=== PATIENT | male | born 1965 | race Caucasian/White ===

== ENCOUNTER 2019-07-30 20:36 | Emergency (ER) | payer OTHER ==
[2019-07-30 20:51] VITALS: BP 117/78; PULSE 82; TEMP 98.2; BMI 32.5
[2019-07-30] MEDS ORDERED: IBUPROFEN 400 MG TABLET (FP) PO ONE ×2 (21:00→21:05)
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
== END 2019-07-30 21:08 | disposition home or self-care (01) ==
LOC: FER 20:36
PROC: 0H9JXZZ Drainage of Left Upper Leg Skin, External Approach (ICD-10-PCS; principal; 2019-07-30)
DX: L72.3 Sebaceous cyst (principal); F17.210 Nicotine dependence, cigarettes, uncomplicated; Z95.810 Presence of automatic (implantable) cardiac defibrillator; K21.9 Gastro-esophageal reflux disease without esophagitis; I10 Essential (primary) hypertension; E78.5 Hyperlipidemia, unspecified
CPT/HCPCS: 87070; 87186; 87205; 99281-25

== ENCOUNTER 2021-11-20 10:20 | Emergency (ER) | payer OTHER ==
[2021-11-20 10:27] VITALS: BP 101/66; PULSE 86; TEMP 98.1; BMI 36.9
[2021-11-20] MEDS ORDERED: DIPHTH,PERTUSS(ACELL),TET 0.5 ML DISP.SYRIN IM ONE ×2 (10:41→10:42)
[2021-11-20] MEDS ORDERED: CEPHALEXIN MONOHYDRATE 500 MG CAPSULE (UD) PO ONE (11:19)
[2021-11-20] MEDS ORDERED: CEPHALEXIN MONOHYDRATE 500 MG CAPSULE (UD) ONE (11:24)
== END 2021-11-20 11:40 | disposition home or self-care (01) ==
LOC: FER 10:20
DX: L03.116 Cellulitis of left lower limb (principal)
CPT/HCPCS: 90715; 93971-TC; 99283-25

== ENCOUNTER 2022-03-01 08:32 | Day surgery (SDC) | payer OTHER ==
[2022-03-01 08:43] VITALS: BMI 36.4
[2022-03-01] MEDS ORDERED: VANCOMYCIN 1 GM PREMIX - 200 ML IVPB ONE (09:16)
[2022-03-01] MEDS ORDERED: VANCOMYCIN 1,000 MG in DEXTROSE 5%-WATER - 250 ML IVPB ONE (09:57)
[2022-03-01] MEDS ORDERED: VANCOMYCIN 1,000 MG VIAL (RESTRICTED TO ID ONLY) ONE (09:59)
[2022-03-01 10:00] LABS: HEMATOCRIT 41.5 % (35.4-49); HEMOGLOBIN 14.1 G/dL (11.7-16.9); MCH 31.8 pg (25.7-33.7); MEAN CELL VOLUME 93.4 fl (80-96); MEAN PLT VOLUME 8.3 fl (7.5-11.1); PLATELET COUNT 214.1 10^3/uL (134-434); RBC 4.44 10^6/uL (4.00-5.60); RDW 13.8 % (11.9-15.9); WHITE BLOOD COUNT 9.7 10^3/uL (4.0-10.8)
[2022-03-01 10:04] LABS: ALBUMIN 3.7 g/dl (3.4-5.0); BILIRUBIN,TOTAL 0.8 mg/dl (0.2-1); CALCIUM 8.9 mg/dl (8.5-10); CREATININE 1.5 mg/dl (0.55-1.3); INR 1.12 (0.83-1.09); PROTHROMBIN TIME (PATIENT) 12.9 SEC (9.7-13.0); TOT PROT 6.2 g/dl (6.4-8.2)
[2022-03-01] MEDS ORDERED: SODIUM CHLORIDE 1,000 ML IV ONE (11:23)
[2022-03-01] MEDS ORDERED: GENTAMICIN SO4 80 MG/2 ML VIAL ONE (12:30)
[2022-03-01] MEDS ORDERED: DEXAMETHASONE SOD PHOSPHATE 4 MG/1 ML VIAL ONE (12:35)
[2022-03-01] MEDS ORDERED: ONDANSETRON 4 MG/2 ML VIAL ONE (12:35)
[2022-03-01] MEDS ORDERED: PROPOFOL 40 ML ONE (12:35)
[2022-03-01] MEDS ORDERED: LIDOCAINE HCL/PF 2% SDV 5ML VIAL ONE (12:35)
[2022-03-01] MEDS ORDERED: ceFAZolin SODIUM 1 GM VIAL ONE (12:35)
[2022-03-01] MEDS ORDERED: MIDAZOLAM HCL 2 MG/2 ML SINGLE DOSE VIAL ONE (12:35)
[2022-03-01] MEDS ORDERED: SUCCINYLCHOLINE CHLORIDE 200 MG/10 ML SYRINGE ONE (12:38)
[2022-03-01] MEDS ORDERED: ONDANSETRON 4 MG/2 ML VIAL IVPUSH PRN ×2 (12:46→14:47)
[2022-03-01] MEDS ORDERED: oxyCODONE HCL 5 MG TABLET PO PRN ×2 (12:46→14:47)
[2022-03-01] MEDS ORDERED: DESFLURANE GAS 240 ML BOTTLE IH ONE (13:00)
[2022-03-01] MEDS ORDERED: LACTATED RINGERS SOLUTION 1,000 ML IV SCH (13:00)
[2022-03-01] MEDS ORDERED: ETOMIDATE 20 MG/10 ML AMPUL IVPUSH ONE (13:07)
[2022-03-01] MEDS ORDERED: BUPIVACAINE HCL 100 ML ONE (13:09)
[2022-03-01] MEDS ORDERED: FENTANYL CITRATE/PF 50 MCG/ML VIAL ONE (15:00)
[2022-03-01] MEDS: oxyCODONE HCL 5 MG TABLET PO PRN (21:14)
[2022-03-01] MEDS: TICAGRELOR 60 MG TABLET PO SCH (21:17)
[2022-03-01] MEDS ORDERED: CARVEDILOL 12.5 MG TABLET (FP) PO SCH (22:00)
[2022-03-01] MEDS ORDERED: CARVEDILOL 6.25 MG TABLET (FP) PO SCH (22:00)
[2022-03-01] MEDS ORDERED: SACUBITRIL/VALSARTAN 97 MG-103 MG TABLET PO SCH (22:00)
[2022-03-01] MEDS ORDERED: TAMSULOSIN HCL 0.4 MG CAP PO SCH (22:00)
[2022-03-01] MEDS: CEFAZOLIN SODIUM 2 GM in DEXTROSE 5%-WATER 100 ML IVPB SCH (22:17)
[2022-03-01] MEDS ORDERED: ceFAZolin 2 GRAM PREMIX BAG IVPB SCH (23:00)
[2022-03-02] MEDS: CEFAZOLIN SODIUM 2 GM in DEXTROSE 5%-WATER 100 ML IVPB SCH (06:41)
[2022-03-02] MEDS: oxyCODONE HCL 5 MG TABLET PO PRN (06:49)
[2022-03-02] MEDS: TICAGRELOR 60 MG TABLET PO SCH (09:51)
[2022-03-02] MEDS ORDERED: ACETAMINOPHEN 1000 MG/100 ML BAG IVPB PRN (09:52)
[2022-03-02] MEDS ORDERED: ESCITALOPRAM OXALATE 20 MG TABLET PO SCH (10:00)
[2022-03-02] MEDS ORDERED: NICOTINE 14 MG/24 HOURS TOPICAL PATCH TD SCH (10:00)
[2022-03-02] MEDS ORDERED: ASPIRIN 325 MG ENTERIC COATED TABLET (FP) PO SCH ×2 (10:00)
[2022-03-02] MEDS ORDERED: ASPIRIN 81 MG CHEWABLE TABLETS PO SCH (10:00)
[2022-03-02 11:20] LABS: HEMATOCRIT 40.4 % (35.4-49); HEMOGLOBIN 14.1 G/dL (11.7-16.9); MCH 32.7 pg (25.7-33.7); MEAN CELL VOLUME 93.5 fl (80-96); MEAN PLT VOLUME 8.3 fl (7.5-11.1); PLATELET COUNT 194.8 10^3/uL (134-434); RBC 4.32 10^6/uL (4.00-5.60); RDW 13.9 % (11.9-15.9); WHITE BLOOD COUNT 18.2 10^3/uL (4.0-10.8)
[2022-03-02 11:33] LABS: ALBUMIN 3.5 g/dl (3.4-5.0); BILIRUBIN,TOTAL 0.5 mg/dl (0.2-1); CALCIUM 8.7 mg/dl (8.5-10); CREATININE 1.4 mg/dl (0.55-1.3); TOT PROT 6.1 g/dl (6.4-8.2)
[2022-03-02 11:38] LABS: CHOLESTEROL 160 mg/dl (50-200); HDL CHOLESTEROL 42 mg/dl (40-60); LDL CHOLESTEROL (ONLY DFH) 104 mg/dl (5-100); TRIGLYCERIDES 68 mg/dl (0-150)
[2022-03-02 11:55] LABS: PLATELET ESTIMATE ADEQUATE
[2022-03-02 14:20] VITALS: BP 100/55; PULSE 88; RESP 17; TEMP 98.2
[2022-03-02] MEDS ORDERED: ATORVASTATIN CA 80 MG TABLET (FP) PO SCH (22:00)
== END 2022-03-02 15:28 | disposition home or self-care (01) ==
LOC: FASUSAT 08:32 → EDSTATUS 13:00 → FM/S 14:30 → UNDOADMOB 14:30 → INTOOBSV 14:58 → OBSVTOIN 14:58 → FM/S 16:43 → FASUSAT 16:43
PROVIDERS: ATTEND Student in an Organized Health Care Education/Training Program
PROC: 0LBR0ZZ Excision of Left Knee Tendon, Open Approach (ICD-10-PCS; 2022-03-01)
PROC: 0LQM0ZZ Repair Left Upper Leg Tendon, Open Approach (ICD-10-PCS; principal; 2022-03-01 13:36)
DX: T81.30XA Disruption of wound, unspecified, initial encounter (principal); S76.122A Laceration of left quadriceps muscle, fascia and tendon, initial encounter; X58.XXXA Exposure to other specified factors, initial encounter; Y93.9 Activity, unspecified; Y92.9 Unspecified place or not applicable; Y99.9 Unspecified external cause status
CPT/HCPCS: 36415; 80053; 80061; 83036; 84443; 85027; 85610; 86850; 86900; 86901; 87040; 87070; 87205; 93005; 93010; 94760; 97116-GP; 97161-GP; C9803-CS; U0003; U0005

== ENCOUNTER 2023-05-25 18:35 | Emergency (ER) | payer OTHER ==
[2023-05-25 18:53] VITALS: BP 114/73; PULSE 103; RESP 16; TEMP 98.3; BMI 39.4
[2023-05-25] MEDS ORDERED: LIDO 2%/EPI 1:200000 PRESRVFRE (20 ML SDVIAL) ONE (19:19)
== END 2023-05-25 20:10 | disposition home or self-care (01) ==
LOC: FER 18:35
PROC: 0HQFXZZ Repair Right Hand Skin, External Approach (ICD-10-PCS; principal; 2023-05-25)
DX: S61.210A Laceration without foreign body of right index finger without damage to nail, initial encounter (principal); W27.4XXA Contact with kitchen utensil, initial encounter; Y92.009 Unspecified place in unspecified non-institutional (private) residence as the place of occurrence of the external cause
CPT/HCPCS: 99282-25

== ENCOUNTER 2023-09-26 11:14 | Day surgery (SDC) | payer OTHER ==
[2023-09-23 14:51] VITALS: BMI 37.6
[2023-09-26] MEDS ORDERED: PROPOFOL 40 ML ONE (11:38)
[2023-09-26] MEDS ORDERED: LIDOCAINE HCL/PF 2% SDV 5ML VIAL ONE (11:38)
[2023-09-26] MEDS ORDERED: MIDAZOLAM HCL 2 MG/2 ML SINGLE DOSE VIAL ONE (11:59)
[2023-09-26] MEDS ORDERED: ONDANSETRON 4 MG/2 ML VIAL ONE (11:59)
[2023-09-26] MEDS ORDERED: DEXAMETHASONE SOD PHOSPHATE 4 MG/1 ML VIAL ONE (11:59)
[2023-09-26] MEDS ORDERED: BUPIVACAINE HCL/PF 0.5% (5MG/ML) 10 ML VIAL ONE (12:20)
[2023-09-26] MEDS ORDERED: LIDOCAINE HCL 1%, 10 MG/ML (20ML VIAL) ONE (12:20)
[2023-09-26] MEDS ORDERED: oxyCODONE HCL 5 MG TABLET PO PRN ×2 (12:35)
[2023-09-26] MEDS ORDERED: ONDANSETRON 4 MG/2 ML VIAL IVPUSH PRN (12:35)
[2023-09-26] MEDS ORDERED: ACETAMINOPHEN INJECTION 100 ML IVPB ONE (12:36)
[2023-09-26] MEDS ORDERED: LACTATED RINGERS SOLUTION 1,000 ML IV SCH (12:45)
[2023-09-26] MEDS ORDERED: ceFAZolin SODIUM 1 GM VIAL ONE (13:01)
[2023-09-26] MEDS ORDERED: BACITRACIN ZINC 15 GM TUBE TOPICAL OINTMENT ONE (13:18)
[2023-09-26] MEDS ORDERED: FENTANYL CITRATE/PF 50 MCG/ML VIAL ONE (14:24)
[2023-09-26 15:09] VITALS: RESP 18; TEMP 97.4
[2023-09-26 15:12] VITALS: BP 110/61; PULSE 81
== END 2023-09-26 15:13 | disposition home or self-care (01) ==
LOC: FASU 11:14
PROVIDERS: ATTEND Surgery
PROC: 0JBF0ZZ Excision of Left Upper Arm Subcutaneous Tissue and Fascia, Open Approach (ICD-10-PCS; principal; 2023-09-26 13:06)
DX: L73.2 Hidradenitis suppurativa (principal)
CPT/HCPCS: 82962; 88304-TC; 94760; J0131

== ENCOUNTER 2024-07-07 13:40 | Emergency (ER) | payer OTHER ==
[2024-07-07 13:47] VITALS: BP 103/69; PULSE 78; RESP 18; TEMP 97.7; BMI 29.4
[2024-07-07] MEDS ORDERED: guaiFENesin 600 MG TABLET.ER (FP) PO ONE (14:04)
[2024-07-07] MEDS: guaiFENesin 600 MG TABLET.ER (FP) PO ONE (14:06)
[2024-07-07] MEDS ORDERED: AZITHROMYCIN 500 MG TABLET ONE (15:50)
[2024-07-08] MEDS ORDERED: AZITHROMYCIN 500 MG TABLET PO ONE (15:39)
== END 2024-07-07 15:59 | disposition home or self-care (01) ==
LOC: FER 13:40
DX: R05.9 Cough, unspecified (principal); R09.81 Nasal congestion; J06.9 Acute upper respiratory infection, unspecified; B34.9 Viral infection, unspecified; Z20.822 Contact with and (suspected) exposure to COVID-19
CPT/HCPCS: 0241U-QW; 71046-TC-FY; 99284-25